=== PATIENT | male | born 1955 | race Hispanic/Latino ===

== ENCOUNTER → 2017-09-20 | Outpatient (CLI) | payer BC ==
[~2017-09-20] MED LIST: DiphenhydrAMINE HCL 50 MG/ML VIAL IV SCH; IOPAMIDOL-370 100 ML VIAL IV ONE; METHYLPREDNISOLONE SOD SUCC 125MG/2ML VIAL IVP SCH
== END | disposition home or self-care (01) ==
LOC: RAH 14:33
PROVIDERS: ATTEND Internal Medicine Cardiovascular Disease
DX: I26.99 Other pulmonary embolism without acute cor pulmonale (principal)
CPT/HCPCS: 71275; J1200; J2930; Q9967

== ENCOUNTER → 2019-01-10 | Outpatient (CLI) | payer BC | END | disposition home or self-care (01) | LOC: SHCH 10:00 | PROVIDERS: ATTEND Internal Medicine Cardiovascular Disease | DX: I05.1 Rheumatic mitral insufficiency (principal) | CPT/HCPCS: 93306 ==